=== PATIENT | male | born 1990 | race Caucasian/White ===

== ENCOUNTER 2020-04-03 12:17 | Emergency (ER) | payer OTHER ==
[~2020-04-03] VITALS: Ht 185.4 cm; Wt 83.9 kg
[2020-04-03] MEDS ORDERED: ITCH RELIEF15 GM T (12:52)
== END 2020-04-03 13:03 | disposition home or self-care (01) ==
LOC: ED 12:17
DX: L30.4 Erythema intertrigo (principal); F17.200 Nicotine dependence, unspecified, uncomplicated